=== PATIENT | female | born 1955 | race Caucasian/White ===

== ENCOUNTER → 2023-09-06 09:46 | Outpatient (REF) | payer MEDICARE, OTHER, SELFPAY | LOC: HWWDC 09:46 | PROVIDERS: ATTENDING PHYSICIAN Family Medicine | DX: Z12.31 Encounter for screening mammogram for malignant neoplasm of breast (principal) | CPT/HCPCS: 77063; 77067 ==

== ENCOUNTER → 2024-09-07 11:51 | Outpatient (REF) | payer MEDICARE, OTHER, SELFPAY | LOC: HWWDC 11:51 | PROVIDERS: ATTENDING PHYSICIAN Family Medicine | DX: Z12.31 Encounter for screening mammogram for malignant neoplasm of breast (principal) | CPT/HCPCS: 77063; 77067 ==

== ENCOUNTER → 2024-09-17 09:44 | Outpatient (REF) | payer MEDICARE, OTHER, SELFPAY | LOC: WDC 09:44 | PROVIDERS: ATTENDING PHYSICIAN Family Medicine | DX: R92.8 Other abnormal and inconclusive findings on diagnostic imaging of breast (principal) | CPT/HCPCS: 76642 ==

== ENCOUNTER → 2024-09-22 06:56 | Outpatient (REF) | payer MEDICARE, OTHER, SELFPAY ==
--- NOTE | 2024-09-22 09:31 | OID.BR.INTR ---
[facility] Breast Navigator - Initial
- -
Date of Contact: 09/22/24
Met with patient. Patient given written information on navigator service available at [facility]. Will follow up as needed per protocol.
== END ==
LOC: WDC 06:56
PROVIDERS: ATTENDING PHYSICIAN Family Medicine
DX: N63.11 Unspecified lump in the right breast, upper outer quadrant (principal)
CPT/HCPCS: 88305; 19083; 88341; 88342; 88360; A4648

== ENCOUNTER → 2024-10-12 08:36 | Outpatient (REF) | payer MEDICARE, OTHER, SELFPAY | LOC: WDC 08:36 | PROVIDERS: ATTENDING PHYSICIAN Surgery | DX: C50.411 Malignant neoplasm of upper-outer quadrant of right female breast (principal) | CPT/HCPCS: 19285; A4648 ==

== ENCOUNTER 2024-10-13 06:14 | Day surgery (SDC) | payer MEDICARE, OTHER, SELFPAY ==
[2024-09-30 14:07] VITALS: BMI 32.3
[2024-10-13] VITALS (8 sets, daily range): BP systolic 97–157; BP diastolic 59–89; BMI 32.3
[2024-10-13] MEDS: TYLENOL 1000 MG PO (09:08)
[2024-10-13] MEDS: LOVENOX 40 MG SC (09:08)
[2024-10-13] MEDS: NORMOSOL-R/PLASMALYTE-A 1000 IV (09:24)
--- NOTE | 2024-10-13 13:09 | W.IMMPOSTOP ---
Surgical Immed Post Op Note
-
Primary Surgeon: Kamini
Assisting Surgeon: none
Pre-op Diagnosis: Right breast ca
Post-op Diagnosis: Right breast ca
Procedure Performed: right localized lumpectomy
Anesthesia Type: TIVA
Specimen / Cultures: Right lumpectomy and margins
Estimated Blood Loss: 4cc
Complications: None
Operative Findings: mass, clip, and reflector are in the specimen
--- NOTE | 2024-10-13 13:10 | OR.RPT ---
Operative Report
Operative Report
Date of surgery: 10/13/24
Pre-Op Dx: right breast ca
Post-op DX: right breast ca
Procedure: right localized lumpectomy
Surgeon: Kamini
The patient is a 69-year-old female with biopsy-proven infiltrating ductal carcinoma of the right breast, early-stage, who presents for right localized lumpectomy and possible oncoplastic closure. The patient met criteria to forego axillary
sampling. On the day prior to the procedure she presented to the breast imaging center for a Mayra reflector which was placed at the tumor site.
On the day of surgery patient presented to the same-day surgical services. She verified site and procedure and DVT and antibiotic prophylaxis were delivered. The patient reported that she had removed the Steri-Strip from her Mayra percutaneous
delivery point and had a significant amount of blood exuded the night before surgery but she did get it to stop bleeding.
Patient was taken to the operating room and in the supine position intravenous sedation was delivered. The right breast was prepped and draped in the usual sterile fashion. An appropriate timeout was performed by all staff members. All tissues
were anesthetized with 1% lidocaine plain. No Mayra signal could be obtained even when using multiple probes including the probe from the breast center. Therefore, ab intraoperative ultrasound was performed and the tumor was clearly visible and
marked externally.
A curvilinear incision was made in the appropriate area with the blade. Skin flaps were elevated and dissection was carried down to the area of the mass using the cautery. A wide lumpectomy was performed. Time out of body was noted and the
specimen was sent for radiography. Specimen radiography confirmed the presence of mass, clip, and reflector within it.
Additional margins were harvested for permanent analysis from the posterior, medial, superior, lateral, inferior, and anterior dimensions. These were oriented as well and sent under separate cover. Hemostasis was verified. Marcaine 0.5% plain was
instilled and hemoclips were placed in resection cavity.
The wound was closed using simple interrupted 3-0 plain on deep intermediate subcutaneous tissue and skin was closed with a running subcuticular 4 Monocryl. Surgical glue and a sterile compressive dressing was applied. All sponge needle and
instrument counts were correct and the patient was transferred to the recovery room in stable condition.
([id number])
== END 2024-10-13 12:45 | disposition home or self-care (01) ==
LOC: SDS 06:14
PROVIDERS: ATTENDING PHYSICIAN Surgery; FAMILY PHYSICIAN Family Medicine
DX: C50.911 Malignant neoplasm of unspecified site of right female breast (principal)
CPT/HCPCS: 19301; 88305; 88307; 76098; A4648

== ENCOUNTER → 2024-11-05 10:17 | Outpatient (REF) | payer MEDICARE, OTHER, SELFPAY ==
[2024-11-05 13:13] LABS: Vitamin D, 25-OH*** 37.9 ng/mL (30-80)
== END ==
LOC: HWLAB 10:17
PROVIDERS: ATTENDING PHYSICIAN Surgery; FAMILY PHYSICIAN Family Medicine
DX: E55.9 Vitamin D deficiency, unspecified (principal)
CPT/HCPCS: 36415; 82306

== ENCOUNTER → 2024-12-15 08:51 | Outpatient (REF) | payer MEDICARE, OTHER, SELFPAY | LOC: RAD 08:51 | PROVIDERS: ATTENDING PHYSICIAN Internal Medicine; FAMILY PHYSICIAN Family Medicine | DX: E55.9 Vitamin D deficiency, unspecified (principal); M85.89 Other specified disorders of bone density and structure, multiple sites | CPT/HCPCS: 77080 ==

== ENCOUNTER 2025-03-06 23:28 | Emergency (ER) | payer MEDICARE, OTHER, SELFPAY ==
[2025-03-06 23:45] VITALS: BP 152/90
[2025-03-07 00:09] VITALS: BMI 34.1
[2025-03-07 00:15] VITALS: BP 143/81
[2025-03-07 00:44] LABS: ALT (SGPT) 43 U/L (0-35); AST (SGOT) 39 U/L (14-36); Albumin 4.5 g/dl (3.5-5.0); Alkaline Phosphatase 39 U/L (38-126); Blood Urea Nitrogen 28 mg/dl (7-17); Calcium 9.8 mg/dl (8.4-10.2); Carbon Dioxide 26 mmol/L (22-30); Chloride 108 mmol/L (98-107); Estimated Creatinine Clearance 72 ml/min; Glucose 152 mg/dl (70-99); Lipase 169 U/L (23-300); Potassium 4.2 mmol/L (3.5-5.1); Sodium 141 mmol/L (135-145); Total Protein 7.0 g/dl (6.3-8.2); eGFR > 60.00
[2025-03-07 00:49] LABS: Hematocrit 41.2 % (37.0-47.0); Hemoglobin 13.7 g/dL (12.0-16.0); Mean Corp Hgb Conc. 33.3 g/dL (33.0-37.0); Mean Corpuscular Volume 88.8 fL (81.0-99.0); Nucleated Red Blood Cells % 0 %; Platelet Count 235 10^3/uL (130-400); Red Cell Dist. Width 13.3 % (11.5-14.5)
[2025-03-07 01:00] VITALS: BP 142/79
[2025-03-07] MEDS: NSS 1000 IV (01:05)
--- NOTE | 2025-03-07 01:30 | EDRN ---
Updated patient on blood work and status on being seen, patient resting comfortably at this time, call lyons in reach.
[2025-03-07 02:00] VITALS: BP 155/79
--- NOTE | 2025-03-07 02:31 | ED.GENMED ---
History of Present Illness
<Sheldon Santos MD, Resident - Last Filed: 03/07/25 06:04>
General
Chief Complaint: Abdominal Pain
Source: patient
Time Seen by Provider: 03/07/25 02:28
History of Present Illness
History of Present Illness:
Patient is a 70-year-old woman who presents to the emergency department right upper quadrant pain that started in the late afternoon. 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 She has never felt this kind of pain before and the pain is not worsened or improved with food or without food. She has a past medical history of right-sided breast cancer
anxiety, hypertension, and hyperlipidemia. She takes Arimidex and lisinopril and fenofibrate for those conditions respectively. She does not have any nausea vomiting or diarrhea. She does not have any shortness of breath, chest tightness, or
chest pain. She is able to pass flatus and her bowel habits have not changed.
Past History
<Sheldon Santos MD, Resident - Last Filed: 03/07/25 06:04>
Past History
ED Past Medical History: None
ED Past Surgical History: Gynecological ( Tubal ligation) and Orthopedic ( left rotator cuff repair, left total knee replacement)
Social History
Tobacco: Non-smoker
Alcohol: None
Drug: None
Personal:
Living: with family
Family History
Family History: CAD ( father has a history of IA) and Other ( father has a history of cholecystectomy)
Review of Systems
<Sheldon Santos MD, Resident - Last Filed: 03/07/25 06:04>
Review of Systems
Constitutional: Reports no symptoms
EENT: Reports no symptoms
Respiratory: Reports no symptoms
Cardiac: Reports no symptoms
ABD/GI: Reports abdominal pain
: Reports no symptoms
Musculoskeletal: Reports no symptoms
Skin: Reports no symptoms
Neurological: Reports no symptoms
Endocrine: Reports no symptoms
Hematologic/Lymphatic: Reports no symptoms
Psychiatric: Reports no symptoms
Phy Exam
<Sheldon Santos MD, Resident - Last Filed: 03/07/25 06:04>
General Physical Exam
General Presentation: well appearing and no apparent distress
General age: appears stated age
General Skin: warm and dry
General Habitus: normal and obese
General Mental: alert
General Hydration: appears well hydrated
Cardiovascular Exam
Cardiovascular Exam: regular rate/rhythm, no edema, no gallop, no JVD and no murmur
Pulmonary Exam
Pulmonary Exam: lungs clear, no respiratory distress, no rales, chest non tender, no crackles, no rhonchi, no stridor, no wheezing and no cough
Gastrointestinal Exam
Gastrointestinal Exam: normal bowel sounds, soft, no organomegaly, no pulsatile mass, non distended and tender ( right upper quadrant tenderness)
Psychiatric Exam
Psychiatric Exam: normal mood/affect
Course
<Sheldon Santos MD, Resident - Last Filed: 03/07/25 06:04>
Orders/Labs/Results
Orders:
Orders
03/07/25 00:07
IV Insert/Care/Rem.- Treatment PRN
03/07/25 00:10
Complete Blood Count/With Diff Urgent
Comprehensive Metabolic Panel Urgent
Lipase Urgent
03/07/25 01:04
0.9% Sodium Chloride 1000 ml [Nss] 1,000 ml IV BOLUS
03/07/25 02:28
Electrocardiogram (*1) Urgent
Reason for Study: Abdominal Pain
EKG- Treatment ONCE
03/07/25 02:33
US Abdomen Complete/Upper Urgent
Comment:
Reason For Exam: acute RUQ pain
03/07/25 04:13
CT Abd/pelvis W Iv Cont Urgent
Comment:
Reason For Exam: acute RUQ, epigastric pain
03/07/25 04:17
Urinalysis Reflex To Culture Urgent
Date Specimen was Collected: 03/07/25
Time Specimen was Collected: 00:07
Urine Microscopic Reflex Cult Urgent
Urine Culture Urgent
NITO Source: U
Specimen Description:
Date Specimen was Collected: 03/07/25
Time Specimen was Collected: 00:07
03/07/25 06:31
Mag Hydrox/Al Hydrox/Simeth [Maalox] 30 ml .ROUTE .STK-MED ONE
Mag Hydrox/Al Hydrox/Simeth [Maalox] 30 ml Phenobarb/Hyoscy/Atropine/Scop [] 10 ml Viscous Lidocaine 2% [Xylocaine Viscous Cup] 10 ml PO NOW
Phenobarb/Hyoscy/Atropine/Scop [] 10 ml .ROUTE .STK-MED ONE
Viscous Lidocaine 2% [Xylocaine Viscous Cup] 15 ml .ROUTE .STK-MED ONE
03/07/25 07:00
Pantoprazole [Protonix IV] 40 mg IV NOW STA
Sucralfate Suspension [Carafate Suspension] 1 gm PO NOW STA
Abnormal Lab Results
03/07/25 03/07/25
00:10 04:17
Abs Immat Gran (auto) 0.1 H 10^3/uL
(0-0.05)
Absolute Neuts (auto) 8.3 H 10^3/uL
(1.4-6.5)
Absolute Lymphs (auto) 0.9 L 10^3/uL
(1.2-3.4)
Neutrophils % 84.4 H %
(42.2-75.2)
Lymphocytes % 9.3 L %
(20.5-51.1)
Chloride 108 H mmol/L
(98-107)
BUN 28 H mg/dl
(7-17)
Glucose 152 H mg/dl
(70-99)
AST 39 H U/L
(14-36)
ALT 43 H U/L
(0-35)
Ur Occult Blood Reflex 1+ A
(Negative)
Leukocyte Esterase Rfl 3+ A
(Negative)
Urine WBC (Reflex) 30-40 A /HPF
(0-5)
Urine Bacteria (Reflex) Moderate A
(Negative)
Urine Albumin (Reflex) 1+ A
(Neg - Trace)
03/07/25 00:10
03/07/25 00:10
Vital Signs
Initial and Last Documented VS:
Initial Vital Signs
Temp Pulse Resp BP Pulse Ox
98.6 F 94 20 152/90 96
03/06/25 23:45 03/06/25 23:45 03/06/25 23:45 03/06/25 23:45 03/06/25 23:45
Last Documented Vital Signs
Temp Pulse Resp BP Pulse Ox
98.6 F 94 20 163/83 96
03/06/25 23:45 03/06/25 23:45 03/06/25 23:45 03/07/25 04:16 03/07/25 04:45
<Cami Abarca, DO - Last Filed: 03/07/25 07:15>
Orders/Labs/Results
Orders:
Orders
03/07/25 00:07
IV Insert/Care/Rem.- Treatment PRN
03/07/25 00:10
Complete Blood Count/With Diff Urgent
Comprehensive Metabolic Panel Urgent
Lipase Urgent
03/07/25 01:04
0.9% Sodium Chloride 1000 ml [Nss] 1,000 ml IV BOLUS
03/07/25 02:28
Electrocardiogram (*1) Urgent
Reason for Study: Abdominal Pain
EKG- Treatment ONCE
03/07/25 02:33
US Abdomen Complete/Upper Urgent
Comment:
Reason For Exam: acute RUQ pain
03/07/25 04:13
CT Abd/pelvis W Iv Cont Urgent
Comment:
Reason For Exam: acute RUQ, epigastric pain
03/07/25 04:17
Urinalysis Reflex To Culture Urgent
Date Specimen was Collected: 03/07/25
Time Specimen was Collected: 00:07
Urine Microscopic Reflex Cult Urgent
Urine Culture Urgent
NITO Source: U
Specimen Description:
Date Specimen was Collected: 03/07/25
Time Specimen was Collected: 00:07
03/07/25 06:31
Mag Hydrox/Al Hydrox/Simeth [Maalox] 30 ml .ROUTE .STK-MED ONE
Mag Hydrox/Al Hydrox/Simeth [Maalox] 30 ml Phenobarb/Hyoscy/Atropine/Scop [] 10 ml Viscous Lidocaine 2% [Xylocaine Viscous Cup] 10 ml PO NOW
Phenobarb/Hyoscy/Atropine/Scop [] 10 ml .ROUTE .STK-MED ONE
Viscous Lidocaine 2% [Xylocaine Viscous Cup] 15 ml .ROUTE .STK-MED ONE
03/07/25 07:00
Pantoprazole [Protonix IV] 40 mg IV NOW STA
Sucralfate Suspension [Carafate Suspension] 1 gm PO NOW STA
Abnormal Lab Results
03/07/25 03/07/25
00:10 04:17
Abs Immat Gran (auto) 0.1 H 10^3/uL
(0-0.05)
Absolute Neuts (auto) 8.3 H 10^3/uL
(1.4-6.5)
Absolute Lymphs (auto) 0.9 L 10^3/uL
(1.2-3.4)
Neutrophils % 84.4 H %
(42.2-75.2)
Lymphocytes % 9.3 L %
(20.5-51.1)
Chloride 108 H mmol/L
(98-107)
BUN 28 H mg/dl
(7-17)
Glucose 152 H mg/dl
(70-99)
AST 39 H U/L
(14-36)
ALT 43 H U/L
(0-35)
Ur Occult Blood Reflex 1+ A
(Negative)
Leukocyte Esterase Rfl 3+ A
(Negative)
Urine WBC (Reflex) 30-40 A /HPF
(0-5)
Urine Bacteria (Reflex) Moderate A
(Negative)
Urine Albumin (Reflex) 1+ A
(Neg - Trace)
03/07/25 00:10
03/07/25 00:10
Vital Signs
Initial and Last Documented VS:
Initial Vital Signs
Temp Pulse Resp BP Pulse Ox
98.6 F 94 20 152/90 96
03/06/25 23:45 03/06/25 23:45 03/06/25 23:45 03/06/25 23:45 03/06/25 23:45
Last Documented Vital Signs
Temp Pulse Resp BP Pulse Ox
98.6 F 94 20 163/83 96
03/06/25 23:45 03/06/25 23:45 03/06/25 23:45 03/07/25 04:16 03/07/25 04:45
<Sheldon Santos MD, Resident - Last Filed: 03/07/25 06:04>
*Pulse Oximetry
SaO2: 94
Oxygen Mode of Delivery: Room air
Patient hypoxic: no
*Critical Care Note
Total Time (30-74mins, 75-104mins- exclusive of procedures): 60
<Cami Abarca DO - Last Filed: 03/07/25 07:15>
*Radiology
Radiology exam reviewed: radiology read reviewed
*EKG
Interpreted by ED Provider?: Yes
Interpretation: normal
Comparison EKG: no changes
Ischemia: no ischemia
*Critical Care Note
Total Time (30-74mins, 75-104mins- exclusive of procedures): Not Applicable
<Sheldon Santos MD, Resident - Last Filed: 03/07/25 06:04>
Update Note
Update Note:
Problem List:
Right upper quadrant pain
Plan:
CBC and BMP ordered
lipase ordered
abdominal ultrasound ordered
urine analysis ordered
Differential Diagnoses:
cholelithiasis
cholecystitis
choledocholithiasis
constipation
pancreatitis
gastritis
Radiology:
awaiting abdominal ultrasound
EKG:
EKG shows normal sinus rhythm with nonspecific T wave abnormality.
Labs:
CBC unremarkable elevated neutrophil percent of 84.4
BMP with a BUN of 28, glucose of 152, AST of 39 and an ALT of 43
urinalysis pending
Updates:
ED Attending Note
<Sheldon Santos MD, Resident - Last Filed: 03/07/25 06:04>
-
Portions of this chart may have been created with voice recognition software.� Occasional wrong word or��sound alike� substitutions may have occurred due to the inherent limitations of voice recognition software.
<Cami Abraca DO - Last Filed: 03/07/25 07:15>
ED Attending Note
Patient seen and examined by attending physician: Yes
I performed a history and physical exam of patient and discussed management with resident, I reviewed resident's note and agree with documented findings and plan of care.: Yes
ED Attending Note:
This is a 70-year-old woman with history of hypertension, hyperlipidemia, GERD, right breast cancer status post lumpectomy October 2024. She presents with upper abdominal, right upper quadrant pain that began around 7 PM, occasionally radiating to
her back. No other associated symptoms. No definitive aggravating nor relieving factors. No history of similar episodes in the past. 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 No fall.
She denies chest pain nor cough no shortness of breath, no nausea nor vomiting. Appetite has been good.
70-year-old woman appears her stated age, bright and alert, pleasant, appears in no acute distress. is accompanying.
Heart is regular rate and rhythm.
Lungs are clear to auscultation. No respiratory distress.
Abdomen is soft, nondistended, minimal tenderness epigastric as well as right upper quadrant without rebound or guarding nor rigidity. No CVA tenderness.
Concern for acute gastritis, biliary colic, pancreatitis, renal colic, colitis, musculoskeletal abdominal/back pain. ACS is also a consideration.
Labs thus far are unremarkable save for minimally elevated LFTs which were similarly elevated in September of this year.
Will check abdominal ultrasound as well as EKG.
07:00
EKG is unremarkable.
Abdominal ultrasound shows distended gallbladder but otherwise unremarkable. Negative Garces sign. Fatty liver. Common bile duct normal for age at 7 mm.
CAT scan again shows distended gallbladder but no other definitive evidence of cholecystitis. No pancreatitis nor obstructing renal stone. Appendix is normal.
Patient continues with some primarily epigastric pain with palpation. No definitive right upper quadrant tenderness to palpation.
She has been given a GI cocktail with moderate improvement in epigastric pain.
Epigastric abdominal pain may be gastritis in nature, other consideration is abdominal wall muscle strain, cholecystitis. It is reassuring the patient continues to have no right upper quadrant tenderness to palpation, no fever. Only minimally
elevated LFTs but actually improved compared to previous labs September of this year.
We discussed options for hospitalization for observation versus initiation of a short course of daily Protonix, initiating a bland diet, avoid heavy lifting and plan for follow-up with PCP this week.
If abdominal pain worsens or if accompanied with fever, nausea or vomiting or any other worrisome symptom, prompt return to the ED for further evaluation.
Patient agreeable with this plan for discharge to home.
Discharge Plan
Departure
Patient Disposition: Home (Routine Discharge)
Date of Disposition: 03/07/25
Time of Disposition: 07:07
Patient with high blood pressure during this ER visit?: No
Condition: Good
Discharge Problem:
Acute upper abdominal pain
Instructions: Gastritis (DC), [place] diet
Prescriptions:
New
pantoprazole [Protonix] 40 mg tablet,delayed release (DR/EC)
40 mg PO DAILY Qty: 30 0RF
No Action
lisinopril 10 mg Tablet
10 mg PO DAILY
Patient Comments:
with dinner
fluticasone propionate [Flonase] 50 mcg/actuation [place],Suspension
1 spray INTRANASAL DAILY
fenofibrate 160 mg Tablet
160 mg PO DAILY
Patient Comments:
with dinner
carboxymethylcellulose sodium [Refresh] 1 % Drops, Liquid Gel
1 drp OPHTHALMIC (EYE) BID
Rx Instructions:
both eyes
calcium carbonate [Tums] 200 mg calcium (500 mg) Tablet,Chewable
200 mg PO DAILY PRN (Reason: indigestion)
Pepto-Bismol 262 mg Tablet
PO BID
Referrals:
Janelle Carey DO [Family Provider, Family Practice] - Call in 1-3 days for appt
Interventions
Interventions:
*Risk Screen - Suicide Last Done: 03/06/25 23:45
*General Assessment Last Done: 03/07/25 00:09
*Neglect/Abuse Screening Last Done: 03/06/25 23:45
*ED- Fall Risk Assessment Last Done: 03/07/25 00:09
*ED COVID-19 Vaccine History Last Done: 03/07/25 00:09
WD-Odsbta-Ruhatjmuhr Assessment Last Done: 03/07/25 00:42
Discharge Date and Time
Print Language: URDU
[2025-03-07 04:16] VITALS: BP 163/83
[2025-03-07 04:32] LABS: Urine Character Clear (Clear)
--- NOTE | 2025-03-07 04:33 | EDRN ---
Patient ambulated to the restroom and back in bed, Dr. Abarca in to talk with patient about ultrasound results and plan for ct scan
[2025-03-07 05:10] LABS: Urine Red Blood Cell None Seen /HPF (0-2); Urine Squamous Cell >30 /LPF (Few); Urine White Cell 30-40 /HPF (0-5)
[2025-03-07 06:27] VITALS: BP 119/79
[2025-03-07] MEDS: MAALOX 50 PO (06:33)
[2025-03-07 07:00] VITALS: BP 130/74
[2025-03-07] MEDS: CARAFATE SUSPENSION 1 GM PO (07:16)
[2025-03-07] MEDS: PROTONIX IV 40 MG IV (07:16)
== END 2025-03-07 07:24 | disposition home or self-care (01) ==
LOC: EMR 23:28
PROVIDERS: EMERGENCY PHYSICIAN Emergency Medicine; FAMILY PHYSICIAN Family Medicine
DX: R10.11 Right upper quadrant pain (principal); F41.9 Anxiety disorder, unspecified; I10 Essential (primary) hypertension; E78.00 Pure hypercholesterolemia, unspecified; Z79.811 Long term (current) use of aromatase inhibitors; Z82.49 Family history of ischemic heart disease and other diseases of the circulatory system; Z85.3 Personal history of malignant neoplasm of breast; Z96.652 Presence of left artificial knee joint; Z98.51 Tubal ligation status
CPT/HCPCS: 99284; 96374; 96361; 74177; 76700; 80053; 81003; 81015; 83690; 85025; 87086; 93005; Q9967

== ENCOUNTER 2025-03-18 02:22 | Inpatient (IN) | payer MEDICARE, OTHER, SELFPAY ==
[2025-03-17 22:11] VITALS: BP 149/83
[2025-03-17 22:33] VITALS: BMI 33.8
[2025-03-17 22:36] VITALS: BP 144/70
[2025-03-17 23:00] VITALS: BP 126/67
[2025-03-17 23:02] LABS: Hematocrit 39.9 % (37.0-47.0); Hemoglobin 13.3 g/dL (12.0-16.0); Mean Corp Hgb Conc. 33.3 g/dL (33.0-37.0); Mean Corpuscular Volume 87.1 fL (81.0-99.0); Nucleated Red Blood Cells % 0 %; Platelet Count 239 10^3/uL (130-400); Red Cell Dist. Width 13.4 % (11.5-14.5)
[2025-03-17 23:27] LABS: ALT (SGPT) 46 U/L (0-35); AST (SGOT) 44 U/L (14-36); Albumin 4.3 g/dl (3.5-5.0); Alkaline Phosphatase 42 U/L (38-126); Blood Urea Nitrogen 16 mg/dl (7-17); Calcium 9.5 mg/dl (8.4-10.2); Carbon Dioxide 22 mmol/L (22-30); Chloride 104 mmol/L (98-107); Estimated Creatinine Clearance 95 ml/min; Glucose 122 mg/dl (70-99); Potassium 4.1 mmol/L (3.5-5.1); Sodium 133 mmol/L (135-145); Total Protein 7.3 g/dl (6.3-8.2); eGFR > 60.00
[2025-03-17 23:34] LABS: Lipase 54 U/L (23-300)
[2025-03-17] MEDS: TORADOL 15 MG IV (23:34)
[2025-03-17] MEDS: PEPCID 20 MG IV (23:35)
[2025-03-18] VITALS (15 sets, daily range): BP systolic 0–130; BP diastolic 61–86; BMI 32.9
--- NOTE | 2025-03-18 01:25 | ED.GENMED ---
History of Present Illness
<Sidney Apodaca Jr., PA-C - Last Filed: 03/18/25 01:52>
General
Chief Complaint: Abdominal Symptoms
Source: patient
Exam Limitations: none
Time Seen by Provider: 03/17/25 23:07
Nursing documentation reviewed up to this point in time: agreed with
History of Present Illness
History of Present Illness:
70-year-old female past ministry of hypertension hyperlipidemia presenting to the emergency department today with concerns of mid abdominal discomfort with additional pain to the low back. Denies any nausea vomiting diarrhea. Was told that she had
a distended gallbladder in the past as well. Denies any chest pain shortness of breath.
Past History
<WISAM Penny Jr. Last Filed: 03/18/25 01:52>
Past History
ED Past Medical History: None
ED Past Surgical History: Gynecological ( Tubal ligation) and Orthopedic ( left rotator cuff repair, left total knee replacement)
Social History
Tobacco: Non-smoker
Alcohol: None
Drug: None
Personal:
Living: with family
Family History
Family History: CAD ( father has a history of [place]) and Other ( father has a history of cholecystectomy)
Review of Systems
<WISAM Penny Jr. Last Filed: 03/18/25 01:52>
Review of Systems
Allergies reviewed?: Yes
All Other Systems: ROS reviewed and negative except as documented in HPI and ROS
Phy Exam
<WISAM Penny Jr. Last Filed: 03/18/25 01:52>
Physical Exam
Physical Exam:
GENERAL: Alert , in no apparent distress
EYE: pupils equal and reactive
NECK: Supple, no significant adenopathy.
ENT: o/p clr, mmm.
CARDIAC: Regular rate and rhythm .
LUNGS: Clear breath sounds bilaterally, no acute respiratory distress, no wheezes/rales/rhonchi
ABDOMEN: Abdominal pain mainly to the right side of the abdomen mainly to the right upper quadrant
NEUROLOGICAL: Alert and oriented, no focal neuro deficits
SKIN: Warm and dry, skin intact.
MUSCULOSKELETAL: No edema, well perfused.
PSYCH: Normal and appropriate interaction.
Course
<Sidney Apodaca Jr., PA-C - Last Filed: 03/18/25 01:52>
Orders/Labs/Results
Orders:
Orders
03/17/25 22:50
CMP [Comprehensive Metabolic Panel] Urgent
Complete Blood Count/With Diff Urgent
Lipase Urgent
Comment: ADD ON
03/17/25 23:17
Add On- LAB Urgent
Tests Added?: lipase
Urinalysis Reflex To Culture Urgent
03/17/25 23:28
Famotidine [Pepcid] 20 mg IV NOW STA
Ketorolac [Toradol] 15 mg IV NOW STA
03/17/25 23:29
US Abdomen Complete/Upper Urgent
Comment:
Reason For Exam: ruq pain elevated bili
03/18/25 01:47
CT Abd/Pel (IV only)-[facility] only Urgent
Comment:
Reason For Exam: right sided abd pain, US with distended GB
Piperacillin/Tazo 4.5 Gram [Zosyn] 4.5 gram in 100 ml IV NOW
Abnormal Lab Results
03/17/25
22:50
WBC 16.7 H 10^3/uL
(4.8-10.8)
Abs Immat Gran (auto) 0.1 H 10^3/uL
(0-0.05)
Absolute Neuts (auto) 14.5 H 10^3/uL
(1.4-6.5)
Absolute Lymphs (auto) 0.9 L 10^3/uL
(1.2-3.4)
Absolute Monos (auto) 1.3 H 10^3/uL
(0.1-0.6)
Neutrophils % 86.6 H %
(42.2-75.2)
Lymphocytes % 5.3 L %
(20.5-51.1)
Sodium 133 L mmol/L
(135-145)
Glucose 122 H mg/dl
(70-99)
Total Bilirubin 1.5 H mg/dl
(0.2-1.3)
AST 44 H U/L
(14-36)
ALT 46 H U/L
(0-35)
03/17/25 22:50
03/17/25 22:50
Vital Signs
Initial and Last Documented VS:
Initial Vital Signs
Temp Pulse Resp BP Pulse Ox
98.0 F 113 20 149/83 96
03/17/25 22:11 03/17/25 22:11 03/17/25 22:11 03/17/25 22:11 03/17/25 22:11
Last Documented Vital Signs
Temp Pulse Resp BP Pulse Ox
98.0 F 99 27 126/67 94
03/17/25 22:11 03/17/25 23:15 03/17/25 23:15 03/17/25 23:00 03/18/25 01:26
<Cami Abarca, DO - Last Filed: 03/18/25 01:58>
Orders/Labs/Results
Orders:
Orders
03/17/25 22:50
CMP [Comprehensive Metabolic Panel] Urgent
Complete Blood Count/With Diff Urgent
Lipase Urgent
Comment: ADD ON
03/17/25 23:17
Add On- LAB Urgent
Tests Added?: lipase
Urinalysis Reflex To Culture Urgent
03/17/25 23:28
Famotidine [Pepcid] 20 mg IV NOW STA
Ketorolac [Toradol] 15 mg IV NOW STA
03/17/25 23:29
US Abdomen Complete/Upper Urgent
Comment:
Reason For Exam: ruq pain elevated bili
03/18/25 01:47
CT Abd/Pel (IV only)-[facility] only Urgent
Comment:
Reason For Exam: right sided abd pain, US with distended GB
Piperacillin/Tazo 4.5 Gram [Zosyn] 4.5 gram in 100 ml IV NOW
Abnormal Lab Results
03/17/25
22:50
WBC 16.7 H 10^3/uL
(4.8-10.8)
Abs Immat Gran (auto) 0.1 H 10^3/uL
(0-0.05)
Absolute Neuts (auto) 14.5 H 10^3/uL
(1.4-6.5)
Absolute Lymphs (auto) 0.9 L 10^3/uL
(1.2-3.4)
Absolute Monos (auto) 1.3 H 10^3/uL
(0.1-0.6)
Neutrophils % 86.6 H %
(42.2-75.2)
Lymphocytes % 5.3 L %
(20.5-51.1)
Sodium 133 L mmol/L
(135-145)
Glucose 122 H mg/dl
(70-99)
Total Bilirubin 1.5 H mg/dl
(0.2-1.3)
AST 44 H U/L
(14-36)
ALT 46 H U/L
(0-35)
03/17/25 22:50
03/17/25 22:50
Vital Signs
Initial and Last Documented VS:
Initial Vital Signs
Temp Pulse Resp BP Pulse Ox
98.0 F 113 20 149/83 96
03/17/25 22:11 03/17/25 22:11 03/17/25 22:11 03/17/25 22:11 03/17/25 22:11
Last Documented Vital Signs
Temp Pulse Resp BP Pulse Ox
98.0 F 99 27 126/67 94
03/17/25 22:11 03/17/25 23:15 03/17/25 23:15 03/17/25 23:00 03/18/25 01:26
<Sidney Apodaca Jr., PA-C - Last Filed: 03/18/25 01:52>
MDM/Problems Addressed
MDM/Problems Addressed:
70-year-old female presenting to the emergency department today with concerns of right-sided abdominal pain worsening over the past day or so. Has had this intermittently over the past few weeks. Denies associated nausea vomiting or diarrhea.
Initially tachycardic on arrival but improving into the 90s. White count of 16.7. Elevated bilirubin level compared to previous. CT scan showing gallbladder distention and findings potentially consistent with cholecystitis. Case was discussed
with general surgery that recommended admit to [facility] as well as additional CT scan.
<Sidney Apodaca Jr., PA-C - Last Filed: 03/18/25 01:52>
*Pulse Oximetry
SaO2: 94
Oxygen Mode of Delivery: Room air
Patient hypoxic: no (99)
*Critical Care Note
Total Time (30-74mins, 75-104mins- exclusive of procedures): Not Applicable
ED Attending Note
<Sidney Apodaca Jr., PA-C - Last Filed: 03/18/25 01:52>
-
Portions of this chart may have been created with voice recognition software.� Occasional wrong word or��sound alike� substitutions may have occurred due to the inherent limitations of voice recognition software.
<Cami Abarca DO - Last Filed: 03/18/25 01:58>
ED Attending Note
Patient seen and examined by attending physician: Yes
I performed a history and physical exam of patient and discussed management with resident, I reviewed resident's note and agree with documented findings and plan of care.: Yes
ED Attending Note:
This is a 70-year-old woman with history of hypertension, hyperlipidemia, GERD, right breast cancer status postlumpectomy October 2024. She presents with recurrent, acute right upper quadrant abdominal pain. Similar pain noted 2 weeks ago, evaluated
by myself at that time. CAT scan and ultrasound at that time showed distended gallbladder but no other evidence of cholecystitis. Moderate improvement with GI cocktail. At that visit discussed options for hospitalization for observation versus
discharge to home with short course of Protonix, bland diet and follow-up with PCP.
She has had somewhat mild, intermittent, smoldering discomfort over the past 2 weeks but much worse tonight. She has not had a fever, no nausea or vomiting or diarrhea.
70-year-old woman appears her stated age, awake and alert, appears in no acute distress.
Exam notable for moderate tenderness right upper quadrant, no rebound guarding or rigidity.
Labs notable for elevated white blood cell count of 17,000. Mildly elevated LFTs, similar to previous.
Ultrasound however shows distended gallbladder with thickened wall concerning for cholecystitis.
History, exam, laboratory as well as ultrasound findings consistent with acute cholecystitis.
Will initiate IV antibiotics, contact surgery and due to age, multiple medical issues, plan to admit to hospitalist service.
Discharge Plan
Departure
Prescriptions:
No Action
lisinopril 10 mg Tablet
10 mg PO DAILY
Patient Comments:
with dinner
fluticasone propionate [Flonase] 50 mcg/actuation [place],Suspension
1 spray INTRANASAL DAILY
fenofibrate 160 mg Tablet
160 mg PO DAILY
Patient Comments:
with dinner
carboxymethylcellulose sodium [Refresh] 1 % Drops, Liquid Gel
1 drp OPHTHALMIC (EYE) BID
Rx Instructions:
both eyes
calcium carbonate [Tums] 200 mg calcium (500 mg) Tablet,Chewable
200 mg PO DAILY PRN (Reason: indigestion)
Pepto-Bismol 262 mg Tablet
PO BID
pantoprazole [Protonix] 40 mg tablet,delayed release (DR/EC)
40 mg PO DAILY Qty: 30 0RF
Referrals:
Janelle Carey DO [Family Provider, Family Practice]
Interventions
Interventions:
*Risk Screen - Suicide Last Done: 03/17/25 22:36
*General Assessment Last Done: 03/17/25 22:11
*Neglect/Abuse Screening Last Done: 03/17/25 22:36
*ED- Fall Risk Assessment Last Done: 03/17/25 22:36
*ED COVID-19 Vaccine History Last Done: 03/17/25 22:36
JI-Vvemiu-Plnomcxqzo Assessment Last Done: 03/17/25 22:37
Discharge Date and Time
Print Language: JAPANESE
[2025-03-18] MEDS: ZOSYN 100 IV (01:55)
--- NOTE | 2025-03-18 02:17 | HPS.HSE ---
Family Physician
-
Family Physician: Janelle Carey
Chief Complaint
-
Abd Pain
History of Present Illness
Patient is a 70y F with PMH significant for hypertension and breast cancer who presents to ED complaining of abdominal pain. Patient initially developed abdominal pain on 03/06/25. Pain was epigastric with occasional radiation into the mid back.
She presented to the ED at that time and was noted to have distended gallbladder with stones, sludge, wall thickening or pericholecystic fluid. Her pain improved with medication and she was discharged for follow-up. Patient states that her pain
has been intermittent since that time. No apparent association with eating / drinking. No associated nausea / vomiting, fevers / chills, etc. This evening her pain became more severe and more constant and she returned to the ED for evaluation.
Patient denies any prior h/o similar symptoms before 03/06.
There is family history of GB disease (sister and father).
No new medications.
Medical History
Past Medical History
Past Medical History: Reports Other
Additional Past Medical History:
Hypertension
Breast Cancer s/p Lumpectomy and XRT on Arimidex
Obesity
Past Surgical History: Reports Other
Additional Past Surgical History:
Right Lumpectomy (October 2024)
Left TKA
Tubal Ligation
Social History
Tobacco: Non-smoker
Alcohol: None
Drug: None
Family History
Family History: Other (Father / Sister: Gallbladder disease)
Allergies / Home Medications
Allergies reflects when Allergies were last updated in [facility].
Home Medications with original date entered in [facility]
Allergy/Medication List:
Allergies
Allergy/AdvReac Type Severity Reaction Status Date / Time
hayfever Allergy congestion Uncoded 03/17/25 22:11
Home Medications
anastrozole 1 mg tablet 1 mg PO DAILY 03/18/25
fenofibrate 160 mg tablet 160 mg PO DAILY 03/18/25
lisinopril 10 mg tablet 10 mg PO DAILY 03/18/25
pantoprazole 40 mg tablet,delayed release 40 mg PO DAILY 03/18/25
Review of Systems
-
History Source: Patient
A 12 point ROS was completed and negative except as noted: Yes
Constitutional: Denies Fever or Chills
Respiratory: Denies Cough or Trouble Breathing
Cardiac: Denies Chest Pain or Palpitations
Abdomen/GI: Reports Abdominal Pain; Denies Nausea, Vomiting, Diarrhea, Bloody Stools or Black Stools
: Denies Dysuria or Flank Pain
Musculoskeletal: Denies Joint Pain or Edema
Neurological: Denies Dizzy or Headache
Psych: Denies Depression or Anxiety
Physical Exam
Vital Signs
Vital Signs
Temp Pulse Resp BP Pulse Ox
98.0 F 99 27 126/67 94
03/17/25 22:11 03/17/25 23:15 03/17/25 23:15 03/17/25 23:00 03/18/25 01:26
Physical Exam
General: Other (70y F in no acute distress.)
HEENT: Moist mucous membranes and PERRLA
Respiratory: Clear; No Wheezes, Rales or Rhonchi
Cardiac: S1/S2 and Regular Rhythm; No Murmur
GI: Soft, Normal Bowel Sounds and Other (Pos RUQ tenderness without rebound / guarding. Pos BS.)
Musculoskeletal: No Clubbing, No Cyanosis and No Edema
Neuro: AO x 3
Laboratory Results
-
03/17/25 22:50
03/17/25 22:50
Laboratory Results
Total Bilirubin 1.5 mg/dl (0.2-1.3) H 03/17/25 22:50
AST 44 U/L (14-36) H 03/17/25 22:50
ALT 46 U/L (0-35) H 03/17/25 22:50
Alkaline Phosphatase 42 U/L (38-126) 03/17/25 22:50
Lipase 54 U/L (23-300) 03/17/25 22:50
Impression/Plan
-
A/P: Patient is a 70y F with PMH significant for hypertension and breast cancer who presents to ED complaining of abdominal pain.
Acute Acalculous Cholecystitis
Sepsis secondary to the above
- Admit for further evaluation and treatment.
- Patient presents with leukocytosis, tachycardia, tachypnea and US showing distended GB with wall thickening.
- NPO, IVFs, IV abx, pain control.
- Surgery evaluation for additional recommendations.
- Repeat CT scan this evening per Surgery recommendations (CT 03/07 with distended GB, no wall thickening / fluid at that time. 1.3cm R hepatic lobe lesion - indeterminate).
- Follow for any new / worsening symptoms.
Benign Hypertension
- Stable. Hold lisinopril acutely.
- Follow BP and resume if needed.
Breast Cancer
- s/p lumpectomy and XRT.
- Continue Arimidex.
DVT Prophylaxis: SCDs
Code Status: Full
[2025-03-18 03:15] LABS: Troponin I < 0.012 ng/ml
[2025-03-18 03:15] LABS: Urine Character Slightly Cloudy (Clear)
[2025-03-18] MEDS: NSS 1000 IV ×3 (03:51→20:58)
[2025-03-18] MEDS: TORADOL 15 MG IV (04:02)
[2025-03-18 04:10] LABS: Urine Squamous Cell >30 /LPF (Few)
[2025-03-18 04:13] LABS: Urine White Cell 16-20 /HPF (0-5)
[2025-03-18 07:56] LABS: Hematocrit 37.5 % (37.0-47.0); Hemoglobin 12.2 g/dL (12.0-16.0); Mean Corp Hgb Conc. 32.5 g/dL (33.0-37.0); Mean Corpuscular Volume 89.5 fL (81.0-99.0); Platelet Count 202 10^3/uL (130-400); Red Cell Dist. Width 13.5 % (11.5-14.5)
[2025-03-18] MEDS: PROTONIX IV 40 MG IV (08:00)
[2025-03-18] MEDS: ZOSYN 50 IV ×2 (08:00→20:40)
[2025-03-18] MEDS: NSS (PRESERVATIVE FREE) 10 ML IV (08:00)
[2025-03-18 08:24] LABS: ALT (SGPT) 42 U/L (0-35); AST (SGOT) 36 U/L (14-36); Albumin 3.7 g/dl (3.5-5.0); Alkaline Phosphatase 40 U/L (38-126); Blood Urea Nitrogen 19 mg/dl (7-17); Calcium 8.8 mg/dl (8.4-10.2); Carbon Dioxide 25 mmol/L (22-30); Chloride 104 mmol/L (98-107); Estimated Creatinine Clearance 70 ml/min; Glucose 107 mg/dl (70-99); Potassium 3.8 mmol/L (3.5-5.1); Sodium 136 mmol/L (135-145); Total Protein 6.5 g/dl (6.3-8.2); eGFR > 60.00
--- NOTE | 2025-03-18 10:31 | CM ---
Reviewed the chart notes and spoke with the patient at the bedside. Patient anticipating going to OR today for josefina carter. The patient resides with her spouse in a two story home with one step to enter. The patient reports no DME/SNF, but did have
[facility] in the past. Patient confirmed her [facility] of choice [facility]. CM continues to be available to patient/family and is monitoring medical plan for needs at discharge.
Plan: Discharge plans will depend on the patient's progress.
--- NOTE | 2025-03-18 10:39 | CON.GS ---
Consultation
-
Date/Time Consultation Performed: 03/18/2025 9 AM
Performing Provider: Arianne
Reason for Consultation: Suspected acute cholecystitis
Medical History
-
Chief Complaint: Epigastric abdominal pain
History of Present Illness:
Patient is a 70-year-old female who was seen overnight secondary to the acute onset of epigastric and right upper quadrant abdominal pain rating to her back. She had a similar episode on March 06, 2025 which was worked up in the emergency
department. Gallbladder distention was noted but no signs of cholecystitis so she was discharged. Her symptoms slowly subsided but acutely returned over the last 36 hours increasing severity and again localizing to the right upper quadrant. There
has been nausea and she vomited yesterday. Pain persist this a.m.
Past Medical History
Past Medical History: Other (Hypertension, hypercholesterolemia, breast cancer on anastrozole)
Past Surgical History: Other (Lumpectomy XRT, Tubal ligation, left total knee)
Social History
Tobacco: Non-Smoker
Alcohol: None
Family History
Family History: Reviewed & Not Pertinent
Allergies / Home Medications
Allergy/AdvReac Type Severity Reaction Status Date / Time
hayfever Allergy congestion Uncoded 03/17/25 22:11
�Medication �Instructions �Recorded �Confirmed �Type
anastrozole 1 mg tablet 1 mg PO DAILY 03/18/25 03/18/25 History
fenofibrate 160 mg tablet 160 mg PO DAILY 03/18/25 03/18/25 History
lisinopril 10 mg tablet 10 mg PO DAILY 03/18/25 03/18/25 History
pantoprazole 40 mg tablet,delayed 40 mg PO DAILY 03/18/25 03/18/25 History
release
Review of Systems
-
History Source: Patient
All other systems: Negative unless noted
A 10 point review of systems was completed, and was negative except as per HPI.
Physical Exam
Vital Signs
Temp Pulse Resp BP Pulse Ox
99.3 F 82 18 120/64 97
03/18/25 07:00 03/18/25 07:00 03/18/25 07:00 03/18/25 07:00 03/18/25 07:00
03/17/25 03/18/25 03/19/25
06:59 06:59 06:59
Actual Weight 89.811 kg
Body Mass Index (BMI) 32.9
Lab Results
03/18/25 06:45
03/18/25 06:45
WBC 12.6 10^3/uL (4.8-10.8) H 03/18/25 06:45
Hgb 12.2 g/dL (12.0-16.0) 03/18/25 06:45
Hct 37.5 % (37.0-47.0) 03/18/25 06:45
Plt Count 202 10^3/uL (130-400) 03/18/25 06:45
Abs Immat Gran (auto) 0.1 10^3/uL (0-0.05) H 03/17/25 22:50
Neutrophils % 86.6 % (42.2-75.2) H 03/17/25 22:50
Physical Exam
General: Well Developed, Well Nourished, No Apparent Distress and Comfortable
HEENT: Normocephalic and Anicteric
Respiratory: Non Labored Respirations
GI: Soft and Tender (Tenderness to palpation localized in the right upper quadrant)
Skin: Warm
Neuro: AO x 3
Psych: Calm
Data Reviewed
-
CT Scan: Image Personally Visualized and interpreted
Ultrasound: Image Personally Visualized and interpreted
Assessment / Plan
-
Assessment: 70-year-old female with probable acute cholecystitis. CT imaging with significantly enlarged/distended gallbladder with surrounding inflammatory changes. No additional acute or chronic pathology identified to explain patient's symptoms
which are biliary in nature. Ultrasound has been negative for gallstones but possible that just or not being visualized.
Given the persistence of her symptoms, localizing pain and CT imaging highly consistent with acute cholecystitis we discussed indications for consideration of cholecystectomy which patient is in agreement to proceed with.
Laparoscopic cholecystectomy with intraoperative cholangiogram's reviewed in detail including the surgical technique, alternative treatment options, benefits and potential risks such as but not limited to bleeding, infectious and wound related
complications, iatrogenic injury to surrounding viscera, bile duct injury, bile leak, postcholecystectomy bowel changes. Any of the patient's concerns or questions were fully addressed and informed consent was obtained.
Plan: Patient has been added onto the OR schedule for cholecystectomy today
Continue current supportive care
Zosyn pending OR availability
--- NOTE | 2025-03-18 11:24 | W.SUR.PREOP ---
Pre-Operative Surgical Note
-
I have examined this patient prior to the performance of the scheduled procedure.
The patient's condition is unchanged from the time of the current History and
Physical and the patient is able to undergo the scheduled procedure.
--- NOTE | 2025-03-18 12:57 | W.PN.UPDATE ---
Update Note
Progress Note Update
Patient admitted 2 AM
seen in pre-op area; going for lap emma
pain bearable, denies n/v
Assessment:
Acute Acalculous Cholecystitis
Sepsis secondary to the above - POA
- Patient presents with leukocytosis, tachycardia, tachypnea and US showing distended GB with wall thickening.
- CT: significantly enlarged/distended gallbladder with surrounding inflammatory changes
- GS following
- OR today for lap emma
- pain control, anti-emetics
- NPO therefore on IVF
- antibiotics per surgery
Benign Hypertension
- Stable. Hold lisinopril acutely.
- Follow BP and resume if needed.
Breast Cancer
- s/p lumpectomy and XRT.
- Continue Arimidex.
DVT Prophylaxis: SCDs
Code Status: Full
--- NOTE | 2025-03-18 14:13 | W.IMMPOSTOP ---
Addendum entered and electronically signed by Rudolph Acuña MD 03/18/25 14:26:
#[id number]
Original Note:
Surgical Immed Post Op Note
-
Primary Surgeon: Rudolph Acuña MD
Assisting Surgeon: Lauryn BURGERx
Pre-op Diagnosis: Acute cholecystitis
Post-op Diagnosis: Acute cholecystitis
Procedure Performed: Laparoscopic cholecystectomy and cholangiogram
Anesthesia Type: GETA +0.25% Marcaine with epi
Specimen / Cultures: Gallbladder/none
Estimated Blood Loss: 50 mL
Complications: None immediate
Operative Findings: Tensely distended and hydropic gallbladder with serosal thinning secondary to distention in the fundus. Cyst needle decompression. Infundibulum floppy and redundant. Gallbladder encased within subacute omental and periduodenal
inflammatory peel. Cystic duct isolated and intraoperative cholangiogram performed confirming biliary anatomy and no evidence of choledocholithiasis or biliary obstruction. Cystic duct controlled proximally with Endoloop and 2 additional clips.
Significant friability of posterior plane between gallbladder and liver bed accounting for operative blood loss. TXA administered 1 g IV x 2 at start and second dose at conclusion of surgery. Surgi-Giorgi application as well at conclusion of surgery.
No stones grossly identified.
Drains: 19 Elver secured to skin with 2-0 nylon
Plan: Continue Zosyn. Clear liquid diet. Follow TUTU outputs.
Updated patient's via phone call postoperatively.
[2025-03-18] MEDS: ZOSYN IV (14:41)
--- NOTE | 2025-03-18 16:00 | PTCARENOTE ---
pt sent to OR at 1100 w/transport volunteers vis bed adn returned to 2120 at 1500. pt drowsy but arousable. 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 post operative plan of care discussed with verbalized understanding. care ongoing.
[2025-03-18] MEDS: DILAUDID 0.5 MG IV ×2 (18:37→21:27)
[2025-03-19] VITALS (7 sets, daily range): BP systolic 119–140; BP diastolic 69–77
[2025-03-19] MEDS: ZOSYN 50 IV ×4 (02:07→19:58)
[2025-03-19] MEDS: DILAUDID 0.5 MG IV ×2 (03:13→08:54)
[2025-03-19 07:56] LABS: Hematocrit 35.5 % (37.0-47.0); Hemoglobin 11.5 g/dL (12.0-16.0); Mean Corp Hgb Conc. 32.4 g/dL (33.0-37.0); Mean Corpuscular Volume 89.6 fL (81.0-99.0); Platelet Count 193 10^3/uL (130-400); Red Cell Dist. Width 13.3 % (11.5-14.5)
[2025-03-19 08:31] LABS: ALT (SGPT) 71 U/L (0-35); AST (SGOT) 77 U/L (14-36); Albumin 3.2 g/dl (3.5-5.0); Alkaline Phosphatase 43 U/L (38-126); Blood Urea Nitrogen 18 mg/dl (7-17); Calcium 7.9 mg/dl (8.4-10.2); Carbon Dioxide 27 mmol/L (22-30); Chloride 105 mmol/L (98-107); Estimated Creatinine Clearance 80 ml/min; Glucose 149 mg/dl (70-99); Potassium 4.4 mmol/L (3.5-5.1); Sodium 137 mmol/L (135-145); Total Protein 5.8 g/dl (6.3-8.2); eGFR > 60.00
[2025-03-19] MEDS: NSS 1000 IV (08:51)
[2025-03-19] MEDS: NSS (PRESERVATIVE FREE) 10 ML IV (08:53)
[2025-03-19] MEDS: PROTONIX IV 40 MG IV (08:53)
--- NOTE | 2025-03-19 09:13 | CM ---
Reviewed the chart notes. Referral for [facility] sent in [facility].
Plan: Discharge to home with [facility] services for drain management and care.
--- NOTE | 2025-03-19 10:40 | W.PN.GS2 ---
Today's Communication / Plan
-
-- LFD
-- Pain control: Tylenol, Toradol (OK with stable Hb, reassuring TUTU outputs and normal renal function), Oxycodone
-- Decrease IVF
-- DVT: Lovenox
-- Maintain TUTU for today
Assessment / Plan
-
Patient is a 70 p/w acute cholecystitis
POD#1 s/p laparoscopic cholecystectomy with IOC
AVSS
Labs notable for downtrending WBC, stable Hb, normal electrolytes and renal function, normal bilirubin, mild bump in LFTs
Clinically doing well. Postoperative pain not unsurprising given degree of cholecystitis and surgical intervention. Mild LFT bump likely related to liver manipulation, reassuring bilirubin and intraoperative IOC. Advance diet. Monitor pain
control. Continue antibiotics and drain management. Will reassess discharge tomorrow.
-- LFD
-- Pain control: Tylenol, Toradol (OK with stable Hb, reassuring TUTU outputs and normal renal function), Oxycodone
-- Decrease IVF
-- Abx: Zosyn
-- Home meds
-- DVT: Lovenox
-- GI: home PPI
-- Maintain TUTU for today
Subjective Data
-
Date of Service: March 19, 2025
Reports a fair amount of abdominal discomfort. Able to ambulate to the bathroom. No nausea or vomiting. Passing flatus, no BM. No fevers.
Objective Data
-
Intake and Output
03/18/25 03/19/25 03/20/25
06:59 06:59 06:59
Intake Total 300 / 300 1690 / 1690
Output Total 480 / 480
Balance 300 / 300 1210 / 1210
Intake:
Oral fluids 240 / 240
IV fluids (Total) 300 / 300 1300 / 1300
Normosol 100 / 100
IV piggybacks 150 / 150
Output:
Drain Output (Total) 30 / 30
Right Abdomen 10 / 10
Right Upper Abdomen Jose- 20 /
[place]
Urine, Voided 450 / 450
Vital Signs
Temp Pulse Resp BP Pulse Ox
98.4 F 77 16 119/69 95
03/19/25 07:00 03/19/25 07:00 03/19/25 07:00 03/19/25 07:00 03/19/25 07:00
Lab Results
03/19/25 07:19
03/19/25 07:19
Calcium 7.9 mg/dl (8.4-10.2) L 03/19/25 07:19
Total Bilirubin 0.6 mg/dl (0.2-1.3) 03/19/25 07:19
Direct Bilirubin 0.5 mg/dl (0.0-0.4) H 03/18/25 06:45
AST 77 U/L (14-36) H 03/19/25 07:19
ALT 71 U/L (0-35) H 03/19/25 07:19
Alkaline Phosphatase 43 U/L (38-126) 03/19/25 07:19
Total Protein 5.8 g/dl (6.3-8.2) L 03/19/25 07:19
Albumin 3.2 g/dl (3.5-5.0) L 03/19/25 07:19
Physical Exam
-
Gen: NAD
Abd: soft, tender to palpation in RUQ, ND, no diffuse peritonitis, TUTU serosang
Patient has a howard catheter: No
Patient has a central line: No
--- NOTE | 2025-03-19 12:44 | W.PN.HOSP.TC ---
Today's Communication/Plan
-
continue post-op care per GS
Assessment / Plan
Assessment / Plan
Assessment:
Acute Acalculous Cholecystitis
Sepsis secondary to the above - POA
- Patient presents with leukocytosis, tachycardia, tachypnea and US showing distended GB with wall thickening.
- CT: significantly enlarged/distended gallbladder with surrounding inflammatory changes
- GS following
- s/p lap emma 03/18/25
- pain control, anti-emetics
- diet: LFD
- antibiotics per surgery
- drain care per surgery
Benign Hypertension
- Stable. resume JEANNINE
- Follow BP
Breast Cancer
- s/p lumpectomy and XRT.
- Continue Arimidex.
posterior right lobe low-attenuation lesion which measures approximately 1.2 cm in diameter
- OP MRI to further characterize
DVT Prophylaxis: Lovenox
Code Status: Full
Anticipated Discharge: Within 24 hours
Subjective/Interval History
-
Date of Service: March 19, 2025
pain controlled
tolerating LFD
no n/v
Objective Data
-
Labs:
Laboratory Results
03/19/25
07:19
WBC 10.9 H
Hgb 11.5 L
Hct 35.5 L
Plt Count 193
Sodium 137
Potassium 4.4
Chloride 105
Carbon Dioxide 27
BUN 18 H
Creatinine 0.7
Glucose 149 H
Calcium 7.9 L
Total Bilirubin 0.6
AST 77 H
ALT 71 H
Alkaline Phosphatase 43
Vital Signs:
Vital Signs
Temp Pulse Resp BP Pulse Ox
98.4 F 87 18 122/70 95
03/19/25 11:00 03/19/25 11:00 03/19/25 11:00 03/19/25 11:00 03/19/25 11:00
I&O
03/18/25 03/19/25 03/20/25
06:59 06:59 06:59
Intake Total 300 / 300 1690 / 1690
Output Total 480 / 480
Balance 300 / 300 1210 / 1210
Physical Exam
-
General: No Apparent Distress
HEENT: Normocephalic and Atraumatic
Respiratory: Negative Wheezes
Cardiac: Regular Rhythm and S1/S2
GI: Soft
Neuro: AO x 3
Psych: Calm
Data Reviewed
-
Total Time Spent with Patient (in minutes): 42
Labs: Labs Reviewed by me
[2025-03-19] MEDS: ROXICODONE PO (14:22)
[2025-03-19] MEDS: ROXICODONE 5 MG PO (14:36)
[2025-03-19] MEDS: BENADRYL 50 MG PO (15:48)
[2025-03-19] MEDS: TYLENOL 1000 MG PO (15:52)
[2025-03-19] MEDS: ZESTRIL 10 MG PO (19:31)
[2025-03-19] MEDS: LOVENOX 40 MG SC (19:31)
[2025-03-19] MEDS: ARIMIDEX 1 MG PO (19:31)
[2025-03-19] MEDS: TRICOR 145 MG PO (19:34)
[2025-03-20] MEDS: NSS 1000 IV (00:06)
[2025-03-20] MEDS: ZOSYN 50 IV (01:20)
[2025-03-20 03:00] VITALS: BP 128/77
[2025-03-20 06:10] LABS: Hematocrit 34.4 % (37.0-47.0); Hemoglobin 11.1 g/dL (12.0-16.0); Mean Corp Hgb Conc. 32.3 g/dL (33.0-37.0); Mean Corpuscular Volume 91.2 fL (81.0-99.0); Platelet Count 228 10^3/uL (130-400); Red Cell Dist. Width 13.8 % (11.5-14.5)
[2025-03-20 06:40] LABS: ALT (SGPT) 74 U/L (0-35); AST (SGOT) 67 U/L (14-36); Albumin 3.0 g/dl (3.5-5.0); Alkaline Phosphatase 45 U/L (38-126); Blood Urea Nitrogen 24 mg/dl (7-17); Calcium 8.6 mg/dl (8.4-10.2); Carbon Dioxide 28 mmol/L (22-30); Chloride 110 mmol/L (98-107); Estimated Creatinine Clearance 80 ml/min; Glucose 100 mg/dl (70-99); Potassium 4.2 mmol/L (3.5-5.1); Sodium 141 mmol/L (135-145); Total Protein 5.7 g/dl (6.3-8.2); eGFR > 60.00
[2025-03-20 07:40] VITALS: BP 153/81
[2025-03-20] MEDS: PROTONIX IV 40 MG IV (08:08)
[2025-03-20] MEDS: NSS (PRESERVATIVE FREE) 10 ML IV (08:09)
[2025-03-20] MEDS: ZOSYN IV (08:58)
[2025-03-20] MEDS: AUGMENTIN 875 MG/125 MG 1 TABLET PO (09:18)
--- NOTE | 2025-03-20 10:53 | W.PN.GS2 ---
Addendum entered and electronically signed by Rudolph Acuña MD 03/20/25 15:35:
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
Overall patient improving postoperatively. Incisional pain adequate controlled.
Tolerating dietary advancement, no nausea or vomiting
AFVSS
NAD AAO x 3
ABD: Soft, nondistended, tenderness to palpation at incision sites in right upper quadrant.
TUTU with serosanguineous fluid, nonbilious
Assessment/plan: 70-year-old female POD #2 s/p lap emma with IOC
Stable for discharge home with TUTU in place
Augmentin additional 4 days postop for total of 6 days
Outpatient follow-up for drain check and removal likely this week; my office will arrange
Original Note:
Today's Communication / Plan
-
dispo planning
Assessment / Plan
-
Patient is a 70 p/w acute cholecystitis
POD#2 s/p laparoscopic cholecystectomy with IOC
AVSS
No further leukocytosis
Mild transaminitis (expected)
H/H stable
Clinically doing well. Postoperative pain not unsurprising given degree of cholecystitis and surgical intervention. Mild LFT bump likely related to liver manipulation, reassuring bilirubin and intraoperative IOC.
-- LFD
-- analgesics prn
-- D/C IVF
-- Abx: Po Augmentin x4 days total
-- Home meds
-- DVT: Lovenox
-- GI: home PPI
-- Maintain TUTU upon d/c. Will remove early next week as op. CM consult placed for VNA
Ok for d/c from surgical standpoint. D/w hospitalist
Subjective Data
-
Date of Service: March 20, 2025
Pt seen and examined at bedside. Denies n/v. Tolerating diet. Still feels quite sore but moving around well. Passing flatus.
Objective Data
-
Intake and Output
03/19/25 03/20/25 03/21/25
06:59 06:59 06:59
Intake Total 1690 / 1690 1620 / 1620 600 / 600
Output Total 480 / 480 1100 / 1100
Balance 1210 / 1210 520 / 520 600 / 600
Intake:
Oral fluids 240 / 240 720 / 720 600 / 600
IV fluids (Total) 1300 / 1300 800 / 800
Normosol 100 / 100
IV piggybacks 150 / 150 100 / 100
Output:
Drain Output (Total) 30 30 50 / 50
Right Abdomen 10 / 10
Right Upper Abdomen Jose- 20 50 / 50
[place]
Urine, Voided 450 / 450 1050 / 1050
Other:
Number of approximated MODERATE 2
amounts of urine
Vital Signs
Temp Pulse Resp BP Pulse Ox
98.6 F 86 16 153/81 95
03/20/25 07:40 03/20/25 07:40 03/20/25 07:40 03/20/25 07:40 03/20/25 08:15
Lab Results
03/20/25 05:58
03/20/25 05:58
Calcium 8.6 mg/dl (8.4-10.2) 03/20/25 05:58
Total Bilirubin 0.6 mg/dl (0.2-1.3) 03/20/25 05:58
Direct Bilirubin 0.5 mg/dl (0.0-0.4) H 03/18/25 06:45
AST 67 U/L (14-36) H 03/20/25 05:58
ALT 74 U/L (0-35) H 03/20/25 05:58
Alkaline Phosphatase 45 U/L (38-126) 03/20/25 05:58
Total Protein 5.7 g/dl (6.3-8.2) L 03/20/25 05:58
Albumin 3.0 g/dl (3.5-5.0) L 03/20/25 05:58
Physical Exam
-
Gen: NAD
Abd: soft, expected tenderness, ND, no diffuse peritonitis, TUTU serosang
Patient has a howard catheter: No
Patient has a central line: No
[2025-03-20 11:30] VITALS: BP 135/83
--- NOTE | 2025-03-20 14:26 | W.PN.HOSP.TC ---
Today's Communication/Plan
-
dc to home/VN
Assessment / Plan
Assessment / Plan
Assessment:
Acute Acalculous Cholecystitis
Sepsis secondary to the above - POA
- Patient presents with leukocytosis, tachycardia, tachypnea and US showing distended GB with wall thickening.
- CT: significantly enlarged/distended gallbladder with surrounding inflammatory changes
- GS following
- s/p lap emma 03/18/25
- pain control, anti-emetics
- diet: LFD
- 4 days of Augmentin at discharge
- drain care/VN at home
Benign Hypertension
- Stable. continue JEANNINE
- Follow BP
Breast Cancer
- s/p lumpectomy and XRT.
- Continue Arimidex.
posterior right lobe low-attenuation lesion which measures approximately 1.2 cm in diameter
- OP MRI to further characterize
DVT Prophylaxis: Lovenox
Code Status: Full
More than 30 minutes spent in discharge including
Final examination of the patient
Summarizing hospital stay
Instructions for continuing care to all relevant caregivers
Preparation of discharge records, prescriptions, and referral forms
Total time spent (in minutes): 41
Anticipated Discharge: Today
Subjective/Interval History
-
Date of Service: March 20, 2025
no further flushing with Augmentin
Objective Data
-
Labs:
Laboratory Results
03/20/25
05:58
WBC 7.6
Hgb 11.1 L
Hct 34.4 L
Plt Count 228
Sodium 141
Potassium 4.2
Chloride 110 H
Carbon Dioxide 28
BUN 24 H
Creatinine 0.7
Glucose 100 H
Calcium 8.6
Total Bilirubin 0.6
AST 67 H
ALT 74 H
Alkaline Phosphatase 45
Vital Signs:
Vital Signs
Temp Pulse Resp BP Pulse Ox
99.1 F 88 16 135/83 94
03/20/25 11:30 03/20/25 11:30 03/20/25 11:30 03/20/25 11:30 03/20/25 11:30
I&O
03/19/25 03/20/25 03/21/25
06:59 06:59 06:59
Intake Total 1690 / 1690 1620 / 1620 600 / 600
Output Total 480 / 480 1100 / 1100
Balance 1210 / 1210 520 / 520 600 / 600
Physical Exam
-
General: No Apparent Distress
HEENT: Normocephalic and Atraumatic
Respiratory: Negative Wheezes
Cardiac: Regular Rhythm and S1/S2
GI: Soft and Nontender
Genito-urinary: No Costovertebral Tender
Neuro: AO x 3
Hematologic / Lymphatic: No Lymphadenopathy
Psych: Calm
Data Reviewed
-
Total Time Spent with Patient (in minutes): 42
Labs: Labs Reviewed by me
--- NOTE | 2025-03-20 14:39 | W.DS.TRANS ---
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
-
Discharge Instructions:
Discharge Diagnosis/Procedures Acute cholecystitis status post laparoscopic
cholecystectomy
Diet As tolerated
Additional Diets low fat diet for the next 4-6 weeks
Activity No strenuous activity
Additional Activity Do not lift over 20lbs for the next 2-3 weeks
Bathing Restrictions OK to Shower
Other Services VN
Wound Care Allow the glue to flake off your incisions on
its own over the next 2-3 weeks.
Instructions: How to care for a closed suction drain
Stand-Alone Forms:
Changes to Home Medications: No
Discharge Medications:
DC Medications w/original date entered in [employer] [facility] [employer] [facility]
anastrozole 1 mg tablet 1 mg PO DAILY Cancer 03/18/25
fenofibrate 160 mg tablet 160 mg PO DAILY High Cholesterol 03/18/25
lisinopril 10 mg tablet 10 mg PO DAILY Blood Pressure 03/18/25
pantoprazole 40 mg tablet,delayed release 40 mg PO DAILY Gastrointestinal Issue 03/18/25
acetaminophen 500 mg tablet (Tylenol Extra Strength) 1,000 mg (2 x 500 mg) PO Q6HPRN PRN mild pain/fever>101 #100 tabs 03/20/25
amoxicillin 875 mg-potassium clavulanate 125 mg tablet 1 tab PO Q12 #7 tabs 03/20/25
oxycodone 5 mg tablet 5 mg PO Q4HPRN PRN severe pain #10 tabs 03/20/25
Home Medication Changes
Pending Results: No
Total time spent discharging patient (in min): 42
--- NOTE | 2025-03-20 14:39 | W.DCSUMMARY ---
Discharge Summary
Discharge Data
Date of Admission: 03/18/25
Date of Discharge: 03/20/25
-
Pending Results: No
Hospital Course
70 y/o F, hx of breast cancer and HTN, presented to ER on 03/18 with abdominal pain radiating to the back. The CT scan showed gallbladder distention, wall thickening and a small amount of pericholecystic inflammatory stranding consistent with acute
cholecystitis. Patient was started on IVF and IV abx. She underwent lap emma on 03/18. She did well post-operatively and was discharged home on low fat diet. She will be on antibiotics for 4 days and will have a drain in place with VN to follow up.
Discharge Plan
-
Patient Disposition: Home with Home Care
Discharge Diagnosis/Procedures: Acute cholecystitis status post laparoscopic cholecystectomy
Condition: Fair
Diet: As tolerated
Additional Diets: low fat diet for the next 4-6 weeks
Activity: No strenuous activity
Additional Activity: Do not lift over 20lbs for the next 2-3 weeks
Bathing Restrictions: OK to Shower
Other Services: VN
Wound Care: Allow the glue to flake off your incisions on its own over the next 2-3 weeks.
Activity Restrictions/Additional Instructions:
Post-Operative Instructions for Gallbladder Surgery
The incision sites are sealed with a surgical glue dressing. It is safe to shower at any time after surgery when the glue is dry. Let shower water run over the incisions and then pat dry.
Glue dressing typically peels off in 2-3 weeks.
Abdominal/incisional pain and discomfort, shoulder/scapular pain, bloating, and mild nausea, as well as bruising/stiffness and swelling at the incision sites are common after surgery. If felt to be excessive, notify us.
Please start postoperative pain management using over the counter medications such as Tylenol and Ibuprofen, per instructions on the bottle, as long as there are no medical reasons why you cannot take these medications.
Ice the incisions sites for 20 minutes every hour or so to help with postoperative incisional pain and reduce postoperative surgical site swelling. Take care NOT to get an ice burn on the skin surface.
A warm heating pad is often helpful to alleviate shoulder/scapular back pains after laparoscopic procedures. This pain typically dissipates 24-72hrs post op.
Transition to a low fat diet as tolerated after surgery if not experiencing postoperative nausea or significant bloating/distention. Some fatty food intolerance may occur shortly after surgery (cramps,bloating, nausea,diarrhea with fat intake).
Constipation is common following surgery and postoperative narcotic use. May use a stool softener such as Colace (100 mg 2x day) to prevent constipation
If no BM 24hrs after surgery, recommend starting daily Miralax
If no BM in 24-48hrs after starting Miralax --> recommend then using a dose of magnesium citrate or milk of magnesia with a Senokot tablet to help alleviate post operative constipation as long as there is no nausea/vomiting and passing gas.
Resume all preoperative medications as prescribed, unless directed otherwise.
Do not drive or drink alcohol for 24 hrs after having anesthesia or while taking narcotic pain medications.
Resume regular daily light activities, such as walking, standing and going up/down stairs as tolerated within 24hrs of surgery. Please refrain from lifting over 20 lbs or strenuous exercise until postoperative follow up visit &/or approximately 3-4
weeks.
Call the office with a fever above 101� F, nausea with vomiting, severe abdominal pain, yellowing of skin or eyes, spreading redness and drainage from incision sites or with any concerns/questions.
Please call the office to schedule postoperative surgical follow-up office visit with Dr. Acuña early next week to remove TUTU drain.
Instructions: How to care for a closed suction drain
Referrals:
Rudolph Acuña MD [Active, Surgical] - in less than 1 week
Janelle Carey DO [Family Provider, Family Practice]
Prescriptions:
New
acetaminophen [Tylenol Extra Strength] 500 mg Tablet
1,000 mg PO Q6HPRN PRN (Reason: mild pain/fever>101) Qty: 100 0RF
amoxicillin-pot clavulanate 875-125 mg Tablet
1 tab PO Q12 Qty: 7 0RF
oxycodone 5 mg Tablet
5 mg PO Q4HPRN PRN (Reason: severe pain) Qty: 10 0RF
Continued
anastrozole 1 mg tablet
1 mg PO DAILY
lisinopril 10 mg tablet
10 mg PO DAILY
fenofibrate 160 mg tablet
160 mg PO DAILY
No Action
pantoprazole 40 mg tablet,delayed release (DR/EC)
40 mg PO DAILY
Discharge Orders:
Discharge Patient (As Directed); Ordered 03/20/25
Ordered By: Collins Chung
Discharge Date and Time
Print Language: WOLOF
[2025-03-20 15:50] VITALS: BP 154/91
== END 2025-03-20 16:23 | disposition home health service (06) | DRG 854 ==
LOC: 2 SOUTH 02:22
PROVIDERS: Physician Assistant; Student in an Organized Health Care Education/Training Program; ADMITTING PHYSICIAN Hospitalist; ATTENDING PHYSICIAN Internal Medicine; CONSULT PHYSICIAN Surgery; EMERGENCY PHYSICIAN Emergency Medicine; FAMILY PHYSICIAN Family Medicine
PROC: BF131ZZ Fluoroscopy of Gallbladder and Bile Ducts using Low Osmolar Contrast (ICD-10-PCS; 2025-03-18)
PROC: 0FT44ZZ Resection of Gallbladder, Percutaneous Endoscopic Approach (ICD-10-PCS; 2025-03-18)
DX: A41.9 Sepsis, unspecified organism (principal); K81.0 Acute cholecystitis; K82.1 Hydrops of gallbladder; I10 Essential (primary) hypertension; E78.00 Pure hypercholesterolemia, unspecified; K21.9 Gastro-esophageal reflux disease without esophagitis; E66.9 Obesity, unspecified; K76.9 Liver disease, unspecified; J30.1 Allergic rhinitis due to pollen; Z96.652 Presence of left artificial knee joint; Z82.49 Family history of ischemic heart disease and other diseases of the circulatory system; Z83.79 Family history of other diseases of the digestive system; Z85.3 Personal history of malignant neoplasm of breast; Z92.3 Personal history of irradiation; Z68.32 Body mass index [BMI] 32.0-32.9, adult; Z79.811 Long term (current) use of aromatase inhibitors
CPT/HCPCS: 74177; 74300; 76000; 76700; 80048; 80053; 80076; 81003; 81015; 83690; 84484; 85025; 85027; 87086; 88304; 93005; 96365; 96375; 99285; A4300; Q9967

== ENCOUNTER → 2025-04-06 08:20 | Outpatient (REF) | payer MEDICARE, OTHER, SELFPAY ==
[2025-04-06 09:40] LABS: Hematocrit 40.1 % (37.0-47.0); Hemoglobin 12.9 g/dL (12.0-16.0); Mean Corp Hgb Conc. 32.2 g/dL (33.0-37.0); Mean Corpuscular Volume 89.1 fL (81.0-99.0); Nucleated Red Blood Cells % 0 %; Platelet Count 243 10^3/uL (130-400); Red Cell Dist. Width 13.4 % (11.5-14.5)
[2025-04-06 09:54] LABS: ALT (SGPT) 33 U/L (0-35); AST (SGOT) 32 U/L (14-36); Albumin 4.2 g/dl (3.5-5.0); Alkaline Phosphatase 49 U/L (38-126); Blood Urea Nitrogen 18 mg/dl (7-17); Calcium 9.4 mg/dl (8.4-10.2); Carbon Dioxide 29 mmol/L (22-30); Chloride 106 mmol/L (98-107); Glucose 107 mg/dl (70-99); Potassium 4.6 mmol/L (3.5-5.1); Sodium 141 mmol/L (135-145); Total Protein 7.1 g/dl (6.3-8.2); eGFR > 60.00
[2025-04-06 10:07] LABS: Vitamin D, 25-OH*** 39.7 ng/mL (30-80)
== END ==
LOC: REG 08:20
PROVIDERS: ATTENDING PHYSICIAN Internal Medicine; FAMILY PHYSICIAN Family Medicine
DX: C50.211 Malignant neoplasm of upper-inner quadrant of right female breast (principal); Z17.0 Estrogen receptor positive status [ER+]; Z79.811 Long term (current) use of aromatase inhibitors; E55.9 Vitamin D deficiency, unspecified
CPT/HCPCS: 36415; 80053; 82306; 85025

== ENCOUNTER → 2025-05-26 12:40 | Outpatient (REF) | payer MEDICARE, OTHER, SELFPAY | LOC: PAVMRI 12:40 | PROVIDERS: ATTENDING PHYSICIAN Family Medicine | DX: R16.0 Hepatomegaly, not elsewhere classified (principal) | CPT/HCPCS: 74183; A9575 ==